=== PATIENT | female | born 1985 | race Hispanic/Latino ===

== ENCOUNTER 2020-08-31 20:49 | Emergency (ER) | payer OTHER, SELFPAY ==
[2020-08-31 22:08] LABS: Protime INR 0.98
[2020-08-31 22:09] LABS: Absolute Lymphocytes (CBC) 2.5 K/uL (0.7-4.9); Basophils % 1.2 % (0-1.3); Hematocrit 29.8 % (36.0-45.0); Lymphocytes % 34.1 % (15.3-44.8); MPV 8.3 fL (7.6-11.3); RBC Red Blood Cell Count 4.48 M/uL (3.86-4.86)
[2020-08-31 22:23] LABS: Sodium Level 142 mmol/L (136-145)
[2020-08-31 22:24] LABS: ALT/SGPT 42 U/L (12-78); AST/SGOT 31 U/L (15-37); Albumin 3.5 g/dL (3.4-5.0); Alkaline Phosphatase 89 U/L (45-117); BUN Blood Urea Nitrogen 11 mg/dL (7-18); Bicarbonate 27 mmol/L (21-32); Bilirubin Direct 0.1 mg/dL (0-0.2); Bilirubin Total 0.5 mg/dL (0.2-1.0); Glucose Level 105 mg/dL (74-106); Magnesium 2.1 mg/dL (1.8-2.4); NT PRO-BNP 61 pg/mL (<125); Potassium 3.2 mmol/L (3.5-5.1); Protein, Total 7.5 g/dL (6.4-8.2); Troponin (Emerg Dept Use Only) < 0.02 ng/mL (0.0-0.045)
[2020-08-31 22:41] LABS: Blood Morphology Comment NOTED (NOT SEEN); Hypochromasia 1+; Ovalocytes 1+; Platelet Estimate ADEQ; White Blood Cell Scan OK (OK)
--- NOTE | 2020-08-31 22:49 | ER ---
Nurse's Notes [facility] [place] Name: Anay Trent Age: 35 yrs Sex: Female : 1985 Arrival Date: 08/31/2020 Time: 20:51 Bed 18 Private MD: Diagnosis: Hypertension;Chest pain, unspecified Presentation: 08/31 21:01 Chief complaint: Patient states: AMIN, nausea, and CP for 90 min. [employer]. Thought she ate ll1 too much salt with her [employer] fries. Coronavirus screen: Client denies travel out of the [place] in the last 14 days. At this time, the client does not indicate any symptoms associated with coronavirus-19. Ebola Screen: Patient denies travel to an Ebola-affected area in the 21 days before illness onset. Initial Sepsis Screen: Does the patient meet any 2 criteria? No. Patient's initial sepsis screen is negative. Does the patient have a suspected source of infection? No. Patient's initial sepsis screen is negative. Risk Assessment: Do you want to hurt yourself or someone else? Patient reports no desire to harm self or others. Onset of symptoms was August 31, 2020. 21:01 Method Of Arrival: Ambulatory ll1 21:01 Acuity: ESTUARDO 3 ll1 Historical: - Allergies: 21:01 cats; ll1 - PMHx: 21:01 Hypertension; Hypothyroidism; ll1 - PSHx: 21:01 ; ll1 - Immunization history:: Flu vaccine is not up to date. - Social history:: Smoking status: Patient denies any tobacco usage or history of. Screenin:25 Abuse screen: Denies threats or abuse. Denies injuries from another. Nutritional sf screening: No deficits noted. Tuberculosis screening: No symptoms or risk factors identified. Never had TB. Possible symptoms: None Risk factors: None. Fall Risk None identified. No fall in past 12 months (0 pts). No secondary diagnosis (0 pts). IV access (20 points). Ambulatory Aid- None/Bed Rest/Nurse Assist (0 pts). Gait- Normal/Bed Rest/Wheelchair (0 pts) Mental Status- Oriented to own ability (0 pts). Total Gant Fall Scale indicates No Risk (0-24 pts). Assessment: 21:25 General: Appears in no apparent distress. comfortable, Behavior is calm, cooperative, sf appropriate for age. Pain: Complains of pain in anterior aspect of left shoulder and chest Pain does not radiate. Pain currently is 7 out of 10 on a pain scale. Pain began suddenly. Neuro: No deficits noted. Level of Consciousness is awake, alert, Oriented to person, place, time, situation. Cardiovascular: Reports chest pain, Denies lightheadedness, palpitations, shortness of breath, Patient's skin is warm and dry. Rhythm is sinus rhythm. Respiratory: No deficits noted. Airway is patent Respiratory effort is even, unlabored, Respiratory pattern is regular, symmetrical. GI: Reports nausea. : No signs and/or symptoms were reported regarding the genitourinary system. 22:19 Reassessment: Up dated family via phone call. sf 23:05 Reassessment: Patient appears in no apparent distress at this time. Patient and/or jb4 family updated on plan of care and expected duration. Pain level reassessed. Patient is alert, oriented x 3, equal unlabored respirations, skin warm/dry/pink. Vital Signs: 21:01 BP 162 / 87; Pulse 76; Resp 17; Temp 98.0; Pulse Ox 100% ; Weight 122.47 kg; Height 5 ll1 ft. 7 in. (170.18 cm); Pain 8/10; 21:25 BP 153 / 96; Pulse 70; Resp 16; Pulse Ox 100% ; sf 21:30 BP 141 / 83; Pulse 71; Resp 16; Pulse Ox 100% ; sf 22:00 BP 138 / 76; Pulse 67; Resp 18; Pulse Ox 100% ; sf 23:02 BP 141 / 82 LA (auto/lg); Pulse 66; Resp 17 S; Pulse Ox 100% on R/A; jp3 21:01 Body Mass Index 42.29 (122.47 kg, 170.18 cm) ll1 ED Course: 20:51 Patient arrived in ED. mr 21:00 Arm band placed on Patient placed in an exam room, on a stretcher. ll1 21:03 Triage completed. ll1 21:11 Yao Meneses PA is PHCP. jr8 21:11 Darinel Kramer MD is Attending Physician. jr8 21:21 Otis Jacobson RN is Primary Nurse. sf 21:25 Patient has correct armband on for positive identification. Placed in gown. Bed in low sf position. Call light in reach. landscape maintenance internship on. Pulse ox on. NIBP on. Door closed. Noise minimized. Visitors limited. Lights dimmed. Verbal reassurance given. 21:25 No provider procedures requiring assistance completed. Patient maintains SpO2 sf saturation greater than 95% on room air. 21:41 EKG done, by ED staff, reviewed by Yao JOSEPH. sf 21:45 Initial lab(s) drawn, by wi, sent to lab. Inserted saline lock: 20 gauge in right sf antecubital area, using aseptic technique. Blood collected. 21:56 XRAY Chest (1 view) In Process Unspecified. EDMS 22:05 Basic Metabolic Panel Sent. sf 22:05 CBC with Diff Sent. sf 22:05 LFT's Sent. sf 23:02 Removal of peripheral IV. Catheter intact, dressing applied. jp3 23:05 IV discontinued, intact, bleeding controlled, No redness/swelling at site. Pressure jb4 dressing applied. Administered Medications: 23:04 Drug: Potassium Chloride 40 mEq Route: PO; jb4 23:04 Follow up: Response: Medication administered at discharge. jb4 23:04 Drug: Tylenol 1000 mg Route: PO; jb4 23:04 Follow up: Response: Medication administered at discharge. jb4 Outcome: 22:47 Discharge ordered by . jrRolly 23:05 Discharged to home ambulatory. jb4 23:05 Condition: stable 23:05 Discharge instructions given to patient, Instructed on discharge instructions, follow up and referral plans. Demonstrated understanding of instructions, follow-up care. 23:05 Patient left the ED. jb4 Signatures: Dispatcher [employer] JAIDENDC Megan Deleon Yao Betancourt PA PA jr8 José Antonio Ibarra, RN RN jb4 Aiden Johnson jp3 Angelo Cheng RN RN ll1 Otis Jacobson RN RN sf
--- NOTE | 2020-08-31 22:49 | EDPHYS ---
Physician Documentation [facility] Name: Anay Trent Age: 35 yrs Sex: Female : 1985 Arrival Date: 08/31/2020 Time: 20:51 Bed 18 Private MD: ED Physician Darinel Kramer HPI: 08/31 22:21 This 35 yrs old Female presents to ER via Ambulatory with complaints of Chest jr8 Pain, Headache, Nausea. 22:21 Patient stated that she ate a really salty meal tonight. Stated that since then jr8 headache, nausea, and chest tightness. Has had blood pressure problems in the past where it spikes. Onset: The symptoms/episode began/occurred acutely, today. Severity of symptoms: At their worst the symptoms were moderate in the emergency department the symptoms are unchanged. The patient has experienced a previous episode. The patient has not recently seen a physician. Historical: - Allergies: 21: cats; ll1 - PMHx: 21:01 Hypertension; Hypothyroidism; ll1 - PSHx: 21:01 ; ll1 - Immunization history:: Flu vaccine is not up to date. - Social history:: Smoking status: Patient denies any tobacco usage or history of. ROS: 22:21 Eyes: Negative for injury, pain, redness, and discharge, ENT: Negative for injury, jr8 pain, and discharge, Neck: Negative for injury, pain, and swelling, Respiratory: Negative for shortness of breath, cough, wheezing, and pleuritic chest pain, Back: Negative for injury and pain, MS/Extremity: Negative for injury and deformity, Skin: Negative for injury, rash, and discoloration. 22:21 Cardiovascular: Positive for chest pain, Negative for edema, orthopnea, palpitations, paroxysmal nocturnal dyspnea. 22:21 Abdomen/GI: Positive for nausea, Negative for abdominal pain, vomiting, diarrhea, constipation, abdominal cramps, abdominal distension. 22:21 Neuro: Positive for headache. Exam: 22:21 Constitutional: This is a well developed, well nourished patient who is awake, alert, jr8 and in no acute distress. Neck: Trachea midline, no thyromegaly or masses palpated, and no cervical lymphadenopathy. Supple, full range of motion without nuchal rigidity, or vertebral point tenderness. No Meningismus. Cardiovascular: Regular rate and rhythm with a normal S1 and S2. No gallops, murmurs, or rubs. Normal PMI, no JVD. No pulse deficits. Respiratory: Lungs have equal breath sounds bilaterally, clear to auscultation and percussion. No rales, rhonchi or wheezes noted. No increased work of breathing, no retractions or nasal flaring. Abdomen/GI: Soft, non-tender, with normal bowel sounds. No distension or tympany. No guarding or rebound. No evidence of tenderness throughout. Back: No spinal tenderness. No costovertebral tenderness. Full range of motion. Skin: Warm, dry with normal turgor. Normal color with no rashes, no lesions, and no evidence of cellulitis. MS/ Extremity: Pulses equal, no cyanosis. Neurovascular intact. Full, normal range of motion. Neuro: Awake and alert, GCS 15, oriented to person, place, time, and situation. Cranial nerves II-XII grossly intact. Motor strength 5/5 in all extremities. Sensory grossly intact. Cerebellar exam normal. Normal gait. Vital Signs: 21:01 BP 162 / 87; Pulse 76; Resp 17; Temp 98.0; Pulse Ox 100% ; Weight 122.47 kg; Height 5 ll1 ft. 7 in. (170.18 cm); Pain 8/10; 21:25 BP 153 / 96; Pulse 70; Resp 16; Pulse Ox 100% ; sf 21:30 BP 141 / 83; Pulse 71; Resp 16; Pulse Ox 100% ; sf 22:00 BP 138 / 76; Pulse 67; Resp 18; Pulse Ox 100% ; sf 23:02 BP 141 / 82 LA (auto/lg); Pulse 66; Resp 17 S; Pulse Ox 100% on R/A; jp3 21:01 Body Mass Index 42.29 (122.47 kg, 170.18 cm) ll1 MDM: 21:11 Patient medically screened. jr8 22:47 Data reviewed: vital signs, nurses notes, lab test result(s), EKG, radiologic studies, jr8 plain films. Data interpreted: Pulse oximetry: on room air is 100 %. Interpretation: normal. Counseling: I had a detailed discussion with the patient and/or guardian regarding: the historical points, exam findings, and any diagnostic results supporting the discharge/admit diagnosis, lab results, radiology results, the need for outpatient follow up, a family practitioner, to return to the emergency department if symptoms worsen or persist or if there are any questions or concerns that arise at home. Special discussion: I have referred the patient to see his PCP for further evaluation of high blood pressure. 08/31 21:29 Order name: Basic Metabolic Panel [facility] 08/31 21:29 Order name: CBC with Diff [facility] 08/31 21:29 Order name: LFT's [facility] 08/31 21:29 Order name: Magnesium; Complete Time: 22:26 [facility] 08/31 21:29 Order name: NT PRO-BNP; Complete Time: 22:26 [facility] 08/31 21:29 Order name: PT-INR; Complete Time: 22: [facility] 08/31 21:29 Order name: Troponin (emerg Dept Use Only); Complete Time: 22:26 [facility] 08/31 21:29 Order name: XRAY Chest (1 view) [facility] 08/31 21:30 Order name: Basic Metabolic Panel; Complete Time: 22:26 [facility] 08/31 21:30 Order name: CBC with Automated Diff; Complete Time: 22:46 [facility] 08/31 21:30 Order name: Liver (Hepatic) Function; Complete Time: 22:26 [facility] 08/31 22:17 Order name: CBC Smear Scan; Complete Time: 22:46 [facility] 08/31 21:29 Order name: EKG; Complete Time: 21:30 [facility] 08/31 21:29 Order name: Cardiac monitoring; Complete Time: 21:34 [facility] 08/31 21:29 Order name: EKG - Nurse/Tech; Complete Time: 22:05 [facility] 08/31 21:29 Order name: IV Saline Lock; Complete Time: 22:05 [facility] 08/31 21:29 Order name: Labs collected and sent; Complete Time: 22:05 [facility] 08/31 21:29 Order name: O2 Per Protocol; Complete Time: :34 [facility] 08/31 21:29 Order name: O2 Sat Monitoring; Complete Time: :34 [facility] Administered Medications: 23:04 Drug: Potassium Chloride 40 mEq Route: PO; jb4 23:04 Follow up: Response: Medication administered at discharge. jb4 23:04 Drug: Tylenol 1000 mg Route: PO; jb4 23:04 Follow up: Response: Medication administered at discharge. jb4 Disposition: 23:07 Co-signature as Attending Physician, Darinel Kramer MD. rn Disposition: 08/31/20 22:47 Discharged to Home. Impression: Hypertension, Chest pain, unspecified. - Condition is Stable. - Discharge Instructions: Nonspecific Chest Pain, Hypertension. - Medication Reconciliation Form, Thank You Letter, Antibiotic Education, Prescription Opioid Use form. - Follow up: Private Physician; When: 2 - 3 days; Reason: Recheck today's complaints, Continuance of care, Re-evaluation by your physician. - Problem is new. - Symptoms have improved. Signatures: Dispatcher [employer] EDMS Darinel Kramer MD MD rn Roszak, Josh, PA PA jr8 José Antonio Ibarra RN RN jb4 Angelo Cheng RN RN ll1 Corrections: (The following items were deleted from the chart) 23:05 22:47 08/31/2020 22:47 Discharged to Home. Impression: Hypertension; Chest pain, jb4 unspecified. Condition is Stable. Forms are Medication Reconciliation Form, Thank You Letter, Antibiotic Education, Prescription Opioid Use. Follow up: Private Physician; When: 2 - 3 days; Reason: Recheck today's complaints, Continuance of care, Re-evaluation by your physician. Problem is new. Symptoms have improved. jr8
[2020-08-31] MEDS ORDERED: POTASSIUM CL SA 10 MEQ TAB PO ONE (23:14)
[2020-08-31] MEDS ORDERED: ACETAMINOPHEN 500 MG TAB ONE (23:14)
[2020-08-31 23:21] VITALS: TEMP 98; O2SAT 100
[2020-08-31 23:25] VITALS: BP 141/82
--- NOTE | 2020-09-01 11:27 | RAD REPORT ---
EXAM DESCRIPTION: RAD - Chest Single View - 08/31/2020 9:56 pm CLINICAL HISTORY: CHEST PAIN Chest pain. COMPARISON: No comparisons FINDINGS: Portable technique limits examination quality. The lungs are grossly clear. The heart is normal in size. No displaced fractures. IMPRESSION: No acute intrathoracic process suspected.
== END 2020-08-31 23:05 | disposition home or self-care (01) ==
LOC: ER 20:49
DX: R07.9 Chest pain, unspecified (principal); I10 Essential (primary) hypertension; E03.9 Hypothyroidism, unspecified
CPT/HCPCS: 36415; 71045; 80048; 80076; 83735; 83880; 84484; 85025; 85610; 93005; 99285